=== PATIENT | female | born 1955 | race Asian ===

== ENCOUNTER 2024-07-22 06:27 | Day surgery (SDC) | payer OTHER, BC ==
[2024-07-17 12:47] VITALS: BMI 27.9
[2024-07-22] MEDS ORDERED: ONDANSETRON 4 MG/2 ML VIAL IVPUSH PRN (08:13)
[2024-07-22] MEDS ORDERED: oxyCODONE HCL 5 MG TABLET PO PRN (08:13)
[2024-07-22] MEDS ORDERED: LACTATED RINGERS SOLUTION 1,000 ML IV SCH (08:15)
[2024-07-22] MEDS ORDERED: PROPOFOL 20 ML ONE (08:40)
[2024-07-22] MEDS ORDERED: MIDAZOLAM HCL 2 MG/2 ML SINGLE DOSE VIAL ONE (08:40)
[2024-07-22] MEDS ORDERED: ceFAZolin SODIUM 1 GM VIAL ONE (09:08)
[2024-07-22] MEDS: ceFAZolin 2 GRAM PREMIX BAG IVPB ONE ×2 (09:09)
[2024-07-22 11:02] VITALS: RESP 16
[2024-07-22 11:48] VITALS: BP 125/62; PULSE 67; TEMP 98
== END 2024-07-22 12:54 | disposition home or self-care (01) ==
LOC: JASU-SURG 06:27
PROVIDERS: ATTEND Urology
PROC: 0TVD8ZZ Restriction of Urethra, Via Natural or Artificial Opening Endoscopic (ICD-10-PCS; principal; 2024-07-22 09:00)
DX: N36.42 Intrinsic sphincter deficiency (ISD) (principal); N39.3 Stress incontinence (female) (male)
CPT/HCPCS: 51715; L8606; 94760